=== PATIENT | male | born 1980 | race Caucasian/White ===

== ENCOUNTER 2019-12-01 16:28 | Inpatient (IN) | payer OTHER ==
[~2019-12-01] VITALS: Ht 167.6 cm; Wt 70.0 kg
[2019-12-01] VITALS (10 sets, daily range): BP systolic 103–126; BP diastolic 68–84
[2019-12-01] MEDS ORDERED: normal saline 1000ML IV soln IV ONE (17:40)
[2019-12-01] MEDS ORDERED: cefoxitin sod inj 2,000 MG in normal saline 100ml IV soln 100 ML IV SCH (17:40)
[2019-12-01 17:47] LABS: ALANINE AMINOTRANSFERASE 40 U/L (12-78); ALBUMIN 3.4 G/DL (3.4-5.0); ALBUMIN/GLOBULIN RATIO 0.6 (1.1-1.5); ALKALINE PHOSPHATASE 88 IU/L (46-116); ANION GAP 5 (8-16); ASPARTATE AMINO TRANSFERASE 26 U/L (10-37); BILIRUBIN,TOTAL 1.5 MG/DL (0.1-1.0); BLOOD UREA NITROGEN 34 MG/DL (7-18); BUN/CREATININE RATIO 24.8 (5.4-32.0); CALCIUM 9.8 MG/DL (8.5-10.1); CHLORIDE 94 MMOL/L (99-107); CREATININE 1.37 MG/DL (0.60-1.10); GLUCOSE 158 MG/DL (70-104); LIPASE 71 U/L (73-393); POTASSIUM 3.9 MMOL/L (3.5-5.1); SODIUM 133 MMOL/L (135-145); TOTAL CARBON DIOXIDE 34.4 MMOL/L (24-32); TOTAL PROTEIN 8.7 G/DL (6.4-8.2); eGFR 58 ML/MIN
[2019-12-01] MEDS ORDERED: metroNIDAZOLE-Flagyl 500mg/NS 100 ML IV STA (17:54)
[2019-12-01] MEDS ORDERED: ceFOXitin sod/dextrose 2g/50ml 50 ML IV ONE (17:56)
[2019-12-01 17:59] LABS: BASOPHILS % (AUTO) 0.1 % (0-1); EOSINOPHILS % (AUTO) 0.1 % (0-6); HEMATOCRIT 48.1 % (42.0-52.0); HEMOGLOBIN 16.7 g/dl (14.0-17.9); LYMPHOCYTES # (AUTO) 0.4 X10'3 (1.1-4.8); LYMPHOCYTES % (AUTO) 4.6 % (21-51); MEAN CORPUSCULAR HEMOGLOBIN 30.8 PG (27.0-31.0); MEAN CORPUSCULAR HGB CONC 34.7 g/dL (33.0-36.5); MEAN CORPUSCULAR VOLUME 88.6 FL (78-98); MEAN PLATELET VOLUME 9.5 FL (7.4-10.4); MONOCYTES # (AUTO) 0.5 X10'3 (0-0.9); MONOCYTES % (AUTO) 6.2 % (2-12); NEUTROPHILS # (AUTO) 7.7 X10'3 (1.8-7.7); PLATELET COUNT 193 X10'3 (140-440); RED BLOOD COUNT 5.42 X10'6 (4.70-6.10); RED CELL DISTRIBUTION WIDTH 13.6 % (11.5-14.5); WHITE BLOOD COUNT 8.6 X10'3 (4.5-11.0)
[2019-12-01 18:28] LABS: PLATELET ESTIMATE NORMAL; TOTAL CELLS COUNTED 100
[2019-12-01 18:29] LABS: TOXIC GRANULATION 1+; TOXIC VACUOLATION FEW
[2019-12-01] MEDS ORDERED: morphine 4 MG/ML inj SYRINge IV ONE (18:40)
[2019-12-01] MEDS ORDERED: ondansetron/PF 4mg/2ml inj IV ONE (18:40)
[2019-12-01] MEDS ORDERED: NO HOME MEDS (18:49)
[2019-12-01] MEDS: normal saline 1000ml 1,000 ML IV SCH (19:02)
--- NOTE | 2019-12-01 19:03 | NUR ---
GAVE REPORT TO ANESTHESIOLOGY TEACHER, SPOKE WITH MARKETING ASSOCIATE, THEY WILL BE PICKING UP PATIENT SHORTLY
[2019-12-01] MEDS ORDERED: BUPIVAcaine/PF 2.5 mg/ml (0.25%) 30ml vial ONE (19:06)
[2019-12-01] MEDS ORDERED: sevoflurane 250ml liquid IH ONE (19:16)
[2019-12-01] MEDS ORDERED: famotidine/PF 10 mg/ml inj IV ONE (19:26)
[2019-12-01] MEDS ORDERED: midazolam 2 mg/2 ml injection ONE (19:29)
[2019-12-01] MEDS ORDERED: rocuronium 10mg/ml inj IV ONE (19:40)
[2019-12-01] MEDS ORDERED: LIDOcaine 2% 5ml jelly ONE (19:40)
[2019-12-01] MEDS ORDERED: propofol inj 20 ML IV ONE (19:40)
[2019-12-01] MEDS ORDERED: fentaNYL /PF 50mcg/ml 5ml ampule ONE (19:40)
[2019-12-01] MEDS ORDERED: LIDOcaine 2% (20mg/ml) 5ml vial ONE (19:45)
[2019-12-01] MEDS ORDERED: ceFOXitin 1000 MG inj ONE (19:45)
[2019-12-01] MEDS ORDERED: ondansetron/PF 4mg/2ml inj ONE (19:55)
[2019-12-01] MEDS ORDERED: dexamethasone sod phosphate 4mg/ml inj. ONE (19:55)
--- NOTE | 2019-12-01 20:00 | NUR ---
Received report from Bari ARGUETA, from recovery. apt. arrived on [place], , room air, a/o. No sign of distress will continue to monitor
[2019-12-01] MEDS ORDERED: neostigmine methylsulfate 1 MG/ML 10ml vial ONE (20:37)
[2019-12-01] MEDS ORDERED: glycopyrrolate 0.2mg/ml inj ONE (20:37)
--- NOTE | 2019-12-01 20:50 | NUR ---
Received from OR via BED , accompanied by Anesthesiologist DR SCHULTE and report given by Anesthesiolgist. . PATIENT A&OX4, DENIES PAIN, V/S WNL, NEUROVASCULAR CHECKS INTACT, 18G PIV RUE, SCD ON, LAP SIGHTS WITH BANDAIDS TO ABDOMEN CDI
--- NOTE | 2019-12-01 21:30 | NUR ---
PATIENT A&OX4, DENIES PAIN, V/S WNL, NEUROVASCULAR CHECKS INTACT, 18G PIV RUE, SCD ON, LAP SIGHTS WITH BANDAIDS TO ABDOMEN CDI PATIENT TAKEN TO 346B WITH ALL BELONGINGS AND HOOKED UP TO MONITORS IN ROOM AND REPORT GIVEN TO RN WHO HAS TAKEN OVER PATIENT CARE.
[2019-12-01] MEDS: morphine 2 MG/ML inj. syringe IV PRN (21:47)
[2019-12-02] VITALS (7 sets, daily range): BP systolic 105–144; BP diastolic 63–82
[2019-12-02] MEDS: metroNIDAZOLE-Flagyl 500mg/NS 100 ML IV SCH ×2 (00:05→07:52)
[2019-12-02] MEDS: morphine 2 MG/ML inj. syringe IV PRN ×2 (00:21→11:52)
[2019-12-02] MEDS: piperacillin/tazo 3.375gm/50ml 50 ML IV SCH ×3 (01:27→16:58)
[2019-12-02 05:23] LABS: BASOPHILS % (AUTO) 0.1 % (0-1); EOSINOPHILS % (AUTO) 0.1 % (0-6); HEMATOCRIT 39.2 % (42.0-52.0); HEMOGLOBIN 13.5 g/dl (14.0-17.9); LYMPHOCYTES # (AUTO) 0.2 X10'3 (1.1-4.8); LYMPHOCYTES % (AUTO) 4.2 % (21-51); MEAN CORPUSCULAR HEMOGLOBIN 30.4 PG (27.0-31.0); MEAN CORPUSCULAR HGB CONC 34.5 g/dL (33.0-36.5); MEAN CORPUSCULAR VOLUME 88.3 FL (78-98); MEAN PLATELET VOLUME 9.4 FL (7.4-10.4); MONOCYTES # (AUTO) 0.6 X10'3 (0-0.9); MONOCYTES % (AUTO) 11.1 % (2-12); NEUTROPHILS # (AUTO) 4.6 X10'3 (1.8-7.7); NEUTROPHILS % (AUTO) 84.5 % (42-75); PLATELET COUNT 159 X10'3 (140-440); RED BLOOD COUNT 4.44 X10'6 (4.70-6.10); RED CELL DISTRIBUTION WIDTH 13.6 % (11.5-14.5); WHITE BLOOD COUNT 5.5 X10'3 (4.5-11.0)
[2019-12-02 05:34] LABS: ALANINE AMINOTRANSFERASE 30 U/L (12-78); ALBUMIN 2.4 G/DL (3.4-5.0); ALBUMIN/GLOBULIN RATIO 0.6 (1.1-1.5); ALKALINE PHOSPHATASE 64 IU/L (46-116); ANION GAP 6 (8-16); ASPARTATE AMINO TRANSFERASE 20 U/L (10-37); BILIRUBIN,TOTAL 0.8 MG/DL (0.1-1.0); BLOOD UREA NITROGEN 17 MG/DL (7-18); BUN/CREATININE RATIO 18.5 (5.4-32.0); CALCIUM 8.4 MG/DL (8.5-10.1); CHLORIDE 101 MMOL/L (99-107); CREATININE 0.92 MG/DL (0.60-1.10); GLUCOSE 139 MG/DL (70-104); POTASSIUM 4.6 MMOL/L (3.5-5.1); SODIUM 135 MMOL/L (135-145); TOTAL CARBON DIOXIDE 28.3 MMOL/L (24-32); TOTAL PROTEIN 6.7 G/DL (6.4-8.2); eGFR > 90 ML/MIN
[2019-12-02] MEDS: normal saline 1000ml 1,000 ML IV SCH ×3 (05:44→17:30)
--- NOTE | 2019-12-02 06:21 | NUR ---
Problems reprioritized. Patient report given, questions answered & plan of care reviewed with Juju ARGUETA.
[2019-12-02] MEDS: heparin, porcine 5000 units/ml vial SQ SCH ×2 (07:52→19:11)
[2019-12-02] MEDS ORDERED: HYDROcodone/acetaminophen 5mg/325mg tablet PO PRN (13:20)
[2019-12-02] MEDS: ondansetron/PF 4mg/2ml inj IV PRN ×2 (15:17→23:03)
[2019-12-02] MEDS: HYDROcodone/acetaminophen 10/325mg tab PO PRN (17:30)
--- NOTE | 2019-12-02 18:02 | NUR ---
Problems reprioritized. Patient report given, questions answered & plan of care reviewed with ELLIE Mccall.
--- NOTE | 2019-12-02 18:27 | NUR ---
Patient in room [facility]. I have received report from ELLIE Matute and had the opportunity to ask questions and assume patient care.
[2019-12-02] MEDS: lactobacillus rhamnosus 10,000 MMU CELLS/CAPSULE PO SCH (19:11)
[2019-12-03] MEDS: piperacillin/tazo 3.375gm/50ml 50 ML IV SCH ×3 (00:24→16:17)
[2019-12-03 00:34] VITALS: BP 111/81
[2019-12-03] MEDS: normal saline 1000ml 1,000 ML IV SCH (03:17)
[2019-12-03 06:21] LABS: BASOPHILS % (AUTO) 0.2 % (0-1); EOSINOPHILS % (AUTO) 0.1 % (0-6); HEMATOCRIT 38.5 % (42.0-52.0); HEMOGLOBIN 13.6 g/dl (14.0-17.9); LYMPHOCYTES # (AUTO) 0.6 X10'3 (1.1-4.8); MEAN CORPUSCULAR HEMOGLOBIN 31.1 PG (27.0-31.0); MEAN CORPUSCULAR HGB CONC 35.4 g/dL (33.0-36.5); MEAN CORPUSCULAR VOLUME 88.1 FL (78-98); MEAN PLATELET VOLUME 9.2 FL (7.4-10.4); MONOCYTES # (AUTO) 0.8 X10'3 (0-0.9); MONOCYTES % (AUTO) 14.2 % (2-12); NEUTROPHILS # (AUTO) 4.4 X10'3 (1.8-7.7); NEUTROPHILS % (AUTO) 75.5 % (42-75); PLATELET COUNT 193 X10'3 (140-440); RED BLOOD COUNT 4.37 X10'6 (4.70-6.10); RED CELL DISTRIBUTION WIDTH 14.2 % (11.5-14.5); WHITE BLOOD COUNT 5.8 X10'3 (4.5-11.0)
--- NOTE | 2019-12-03 06:25 | NUR ---
Patient in room [facility]. I have received report from ELLIE Mccall and had the opportunity to ask questions and assume patient care.
[2019-12-03 06:29] LABS: ALANINE AMINOTRANSFERASE 30 U/L (12-78); ALBUMIN 2.6 G/DL (3.4-5.0); ALBUMIN/GLOBULIN RATIO 0.5 (1.1-1.5); ALKALINE PHOSPHATASE 69 IU/L (46-116); ANION GAP 6 (8-16); ASPARTATE AMINO TRANSFERASE 19 U/L (10-37); BILIRUBIN,TOTAL 0.5 MG/DL (0.1-1.0); BLOOD UREA NITROGEN 21 MG/DL (7-18); BUN/CREATININE RATIO 21.9 (5.4-32.0); CALCIUM 8.7 MG/DL (8.5-10.1); CHLORIDE 99 MMOL/L (99-107); CREATININE 0.96 MG/DL (0.60-1.10); GLUCOSE 116 MG/DL (70-104); POTASSIUM 3.8 MMOL/L (3.5-5.1); SODIUM 135 MMOL/L (135-145); TOTAL CARBON DIOXIDE 29.8 MMOL/L (24-32); TOTAL PROTEIN 7.4 G/DL (6.4-8.2); eGFR 87 ML/MIN
--- NOTE | 2019-12-03 06:29 | NUR ---
Problems reprioritized. Patient report given, questions answered & plan of care reviewed with ELLIE Vang.
[2019-12-03 06:56] VITALS: BP 112/75
[2019-12-03 07:17] LABS: PLATELET ESTIMATE NORMAL; TOTAL CELLS COUNTED 100; TOXIC GRANULATION 1+
[2019-12-03] MEDS: lactobacillus rhamnosus 10,000 MMU CELLS/CAPSULE PO SCH ×2 (07:38→20:15)
[2019-12-03] MEDS: heparin, porcine 5000 units/ml vial SQ SCH ×2 (07:38→20:15)
[2019-12-03 11:58] VITALS: BP 113/74
--- NOTE | 2019-12-03 18:13 | NUR ---
Problems reprioritized. Patient report given, questions answered & plan of care reviewed with ELLIE Mccall.
[2019-12-03 18:15] VITALS: BP 120/72
--- NOTE | 2019-12-03 18:15 | NUR ---
Patient in room [facility]. I have received report from ELLIE Vang and had the opportunity to ask questions and assume patient care.
[2019-12-03] MEDS: HYDROcodone/acetaminophen 10/325mg tab PO PRN (23:01)
[2019-12-04] VITALS: BP 117/78
[2019-12-04] MEDS: piperacillin/tazo 3.375gm/50ml 50 ML IV SCH ×4 (00:34→23:15)
[2019-12-04] MEDS: morphine 2 MG/ML inj. syringe IV PRN (00:40)
[2019-12-04 05:23] LABS: HEMOGLOBIN 12.7 g/dl (14.0-17.9); MEAN CORPUSCULAR HEMOGLOBIN 30.8 PG (27.0-31.0); MEAN CORPUSCULAR HGB CONC 34.6 g/dL (33.0-36.5)
[2019-12-04 05:27] LABS: BASOPHILS % (AUTO) 0.2 % (0-1); EOSINOPHILS % (AUTO) 0.5 % (0-6); HEMATOCRIT 36.7 % (42.0-52.0); LYMPHOCYTES # (AUTO) 0.6 X10'3 (1.1-4.8); LYMPHOCYTES % (AUTO) 10.9 % (21-51); MEAN CORPUSCULAR VOLUME 89.1 FL (78-98); MEAN PLATELET VOLUME 8.5 FL (7.4-10.4); MONOCYTES # (AUTO) 0.8 X10'3 (0-0.9); MONOCYTES % (AUTO) 15.3 % (2-12); NEUTROPHILS # (AUTO) 3.9 X10'3 (1.8-7.7); NEUTROPHILS % (AUTO) 73.1 % (42-75); PLATELET COUNT 200 X10'3 (140-440); RED BLOOD COUNT 4.12 X10'6 (4.70-6.10); RED CELL DISTRIBUTION WIDTH 13.8 % (11.5-14.5); WHITE BLOOD COUNT 5.3 X10'3 (4.5-11.0)
[2019-12-04 05:49] LABS: ALANINE AMINOTRANSFERASE 23 U/L (12-78); ALBUMIN 2.4 G/DL (3.4-5.0); ALBUMIN/GLOBULIN RATIO 0.6 (1.1-1.5); ALKALINE PHOSPHATASE 60 IU/L (46-116); ANION GAP 7 (8-16); ASPARTATE AMINO TRANSFERASE 20 U/L (10-37); BILIRUBIN,TOTAL 0.5 MG/DL (0.1-1.0); BLOOD UREA NITROGEN 18 MG/DL (7-18); BUN/CREATININE RATIO 20.9 (5.4-32.0); CALCIUM 8.7 MG/DL (8.5-10.1); CHLORIDE 100 MMOL/L (99-107); CREATININE 0.86 MG/DL (0.60-1.10); GLUCOSE 97 MG/DL (70-104); POTASSIUM 3.7 MMOL/L (3.5-5.1); SODIUM 134 MMOL/L (135-145); TOTAL CARBON DIOXIDE 27.2 MMOL/L (24-32); TOTAL PROTEIN 6.7 G/DL (6.4-8.2); eGFR > 90 ML/MIN
--- NOTE | 2019-12-04 06:20 | NUR ---
Problems reprioritized. Patient report given, questions answered & plan of care reviewed with ELLIE Millan.
[2019-12-04 07:00] VITALS: BP 114/70
[2019-12-04] MEDS: heparin, porcine 5000 units/ml vial SQ SCH ×2 (08:30→19:32)
[2019-12-04] MEDS: lactobacillus rhamnosus 10,000 MMU CELLS/CAPSULE PO SCH ×2 (08:30→19:32)
[2019-12-04 11:22] VITALS: BP 110/69
[2019-12-04] MEDS ORDERED: chlorproMAZINE 25mg tablet PO PRN (15:05)
[2019-12-04 18:15] VITALS: BP 114/70
--- NOTE | 2019-12-04 18:32 | NUR ---
Patient in room [facility]. I have received report from ELLIE Millan and had the opportunity to ask questions and assume patient care.
[2019-12-05 00:12] VITALS: BP 106/68
[2019-12-05 05:24] LABS: BASOPHILS % (AUTO) 0.2 % (0-1); EOSINOPHILS # (AUTO) 0.1 X10'3 (0-0.9); EOSINOPHILS % (AUTO) 0.7 % (0-6); HEMATOCRIT 37.2 % (42.0-52.0); HEMOGLOBIN 12.6 g/dl (14.0-17.9); LYMPHOCYTES # (AUTO) 0.8 X10'3 (1.1-4.8); LYMPHOCYTES % (AUTO) 10.4 % (21-51); MEAN CORPUSCULAR HEMOGLOBIN 30.2 PG (27.0-31.0); MEAN CORPUSCULAR HGB CONC 33.8 g/dL (33.0-36.5); MEAN CORPUSCULAR VOLUME 89.4 FL (78-98); MEAN PLATELET VOLUME 8.5 FL (7.4-10.4); MONOCYTES # (AUTO) 1.2 X10'3 (0-0.9); NEUTROPHILS # (AUTO) 5.9 X10'3 (1.8-7.7); NEUTROPHILS % (AUTO) 73.7 % (42-75); PLATELET COUNT 207 X10'3 (140-440); RED BLOOD COUNT 4.17 X10'6 (4.70-6.10); RED CELL DISTRIBUTION WIDTH 13.7 % (11.5-14.5); WHITE BLOOD COUNT 7.9 X10'3 (4.5-11.0)
[2019-12-05 05:45] LABS: ALANINE AMINOTRANSFERASE 21 U/L (12-78); ALBUMIN 2.2 G/DL (3.4-5.0); ALBUMIN/GLOBULIN RATIO 0.6 (1.1-1.5); ALKALINE PHOSPHATASE 73 IU/L (46-116); ANION GAP 6 (8-16); ASPARTATE AMINO TRANSFERASE 22 U/L (10-37); BILIRUBIN,TOTAL 0.5 MG/DL (0.1-1.0); BLOOD UREA NITROGEN 11 MG/DL (7-18); BUN/CREATININE RATIO 14.3 (5.4-32.0); CHLORIDE 101 MMOL/L (99-107); CREATININE 0.77 MG/DL (0.60-1.10); GLUCOSE 85 MG/DL (70-104); POTASSIUM 3.8 MMOL/L (3.5-5.1); SODIUM 134 MMOL/L (135-145); TOTAL CARBON DIOXIDE 26.8 MMOL/L (24-32); TOTAL PROTEIN 6.2 G/DL (6.4-8.2); eGFR > 90 ML/MIN
--- NOTE | 2019-12-05 06:30 | NUR ---
Patient in room [facility]. I have received report from ABDULAZIZ ARGUETA and had the opportunity to ask questions and assume patient care.
--- NOTE | 2019-12-05 06:40 | NUR ---
Problems reprioritized. Patient report given, questions answered & plan of care reviewed with ELLIE Ventura.
[2019-12-05] MEDS: piperacillin/tazo 3.375gm/50ml 50 ML IV SCH ×2 (08:56→16:04)
[2019-12-05] MEDS: lactobacillus rhamnosus 10,000 MMU CELLS/CAPSULE PO SCH ×2 (08:56→21:06)
[2019-12-05] MEDS: heparin, porcine 5000 units/ml vial SQ SCH ×2 (08:57→21:07)
[2019-12-05 10:55] VITALS: BP 113/65
[2019-12-05 11:00] VITALS: BP 115/73
[2019-12-05 18:00] VITALS: BP 107/65
--- NOTE | 2019-12-05 18:30 | NUR ---
Problems reprioritized. Patient report given, questions answered & plan of care reviewed with MARC ARGUETA.
--- NOTE | 2019-12-05 18:30 | NUR ---
Patient in room [facility]. I have received report from Lorenzo Pretty and had the opportunity to ask questions and assume patient care. Addendum: 12/05/19 at 2305 by Janeen Anderson RN Amended: Links added.
--- NOTE | 2019-12-05 20:55 | NUR ---
pt took meds and then wanted to rest after this.
--- NOTE | 2019-12-05 22:00 | NUR ---
pt resting eyes closed without changes. at the bedside.
--- NOTE | 2019-12-05 23:15 | NUR ---
up ambulating with in the [place] after waking up.
[2019-12-06] VITALS: BP 102/60
[2019-12-06] MEDS: piperacillin/tazo 3.375gm/50ml 50 ML IV SCH ×2 (00:59→08:11)
--- NOTE | 2019-12-06 01:05 | NUR ---
pt resting eyes closed without changes at this time.
--- NOTE | 2019-12-06 03:10 | NUR ---
iv abx infusing without redness or swelling. pt resting eyes closed appears comfortable.
--- NOTE | 2019-12-06 05:14 | NUR ---
pt awoke no complaints of pain at bedside.
[2019-12-06 05:38] LABS: ALANINE AMINOTRANSFERASE 39 U/L (12-78); ALBUMIN 2.3 G/DL (3.4-5.0); ALBUMIN/GLOBULIN RATIO 0.5 (1.1-1.5); ALKALINE PHOSPHATASE 136 IU/L (46-116); ANION GAP 7 (8-16); ASPARTATE AMINO TRANSFERASE 36 U/L (10-37); BILIRUBIN,TOTAL 0.5 MG/DL (0.1-1.0); BLOOD UREA NITROGEN 8 MG/DL (7-18); CALCIUM 8.3 MG/DL (8.5-10.1); CHLORIDE 100 MMOL/L (99-107); GLUCOSE 93 MG/DL (70-104); POTASSIUM 3.8 MMOL/L (3.5-5.1); SODIUM 136 MMOL/L (135-145); TOTAL PROTEIN 6.6 G/DL (6.4-8.2); eGFR > 90 ML/MIN
[2019-12-06 05:40] LABS: BASOPHILS % (AUTO) 0.2 % (0-1); EOSINOPHILS # (AUTO) 0.1 X10'3 (0-0.9); EOSINOPHILS % (AUTO) 0.6 % (0-6); HEMATOCRIT 39.8 % (42.0-52.0); HEMOGLOBIN 13.5 g/dl (14.0-17.9); LYMPHOCYTES # (AUTO) 1.1 X10'3 (1.1-4.8); LYMPHOCYTES % (AUTO) 9.6 % (21-51); MEAN CORPUSCULAR HEMOGLOBIN 30.2 PG (27.0-31.0); MEAN CORPUSCULAR VOLUME 88.9 FL (78-98); MEAN PLATELET VOLUME 8.2 FL (7.4-10.4); MONOCYTES # (AUTO) 1.1 X10'3 (0-0.9); MONOCYTES % (AUTO) 9.7 % (2-12); NEUTROPHILS # (AUTO) 8.9 X10'3 (1.8-7.7); NEUTROPHILS % (AUTO) 79.9 % (42-75); PLATELET COUNT 268 X10'3 (140-440); RED BLOOD COUNT 4.48 X10'6 (4.70-6.10); RED CELL DISTRIBUTION WIDTH 13.6 % (11.5-14.5); WHITE BLOOD COUNT 11.1 X10'3 (4.5-11.0)
--- NOTE | 2019-12-06 06:59 | NUR ---
Problems reprioritized. Patient report given, questions answered & plan of care reviewed with ANDREA ARGUETA. Addendum: 12/06/19 at 0700 by Janeen Anderson RN Amended: Links added.
--- NOTE | 2019-12-06 07:12 | NUR ---
Patient in room [facility]. I have received report from Rebekah ARGUETA and had the opportunity to ask questions and assume patient care.
[2019-12-06 08:00] VITALS: BP 108/66
[2019-12-06] MEDS: heparin, porcine 5000 units/ml vial SQ SCH (08:00)
[2019-12-06] MEDS: lactobacillus rhamnosus 10,000 MMU CELLS/CAPSULE PO SCH (08:11)
[2019-12-06 11:00] VITALS: BP 98/65
--- NOTE | 2019-12-06 15:00 | NUR ---
Pt DC top home with . Pt is A & O, and in no apparent pain or discomfort. Pt and spouse verbalized understanding of all DC orders and instructions. Pt aware of the importance of following up with Dr Luna within two weeks. Pt's belongings were packed and carried out by . Pt was wheeled out to the front where was going to drive him home.
== END 2019-12-06 14:54 | disposition home or self-care (01) | DRG 339 ==
LOC: ER 16:29 → SUR 3N 19:02
PROVIDERS: ADMIT Internal Medicine; ATTEND Family Medicine
PROC: 0DTJ0ZZ Resection of Appendix, Open Approach (ICD-10-PCS; principal; 2019-12-02)
DX: K35.33 Acute appendicitis with perforation, localized peritonitis, and gangrene, with abscess (principal); E87.1 Hypo-osmolality and hyponatremia
CPT/HCPCS: 99291; Z7506; Z7508; 36415; 74176; 80053; 83605; 83690; 84145; 85025; 86885; 86900; 86901; 87040; 87081; A4215; A4618; A7000; G0378; J0694; J1100; J1644; J2001; J2250; J2270; J2405; J2543; J2704; J2710; J3010; J3490; J7030; J7120